=== PATIENT | female | born 1985 | race Hispanic/Latino ===

== ENCOUNTER 2019-10-03 11:40 | Emergency (ER) | payer SELFPAY ==
[~2019-10-03] VITALS: Ht 167.6 cm; Wt 81.6 kg
[2019-10-03] MEDS ORDERED: PANTOPRAZOLE 40 MG 10ML VIAL IV STA (13:14)
[2019-10-03] MEDS ORDERED: SODIUM CHLORIDE 0.9% 1000ML 1,000 ML IV STA (13:14)
[2019-10-03] MEDS ORDERED: ONDANSETRON HCL INJ 2MG/ML 2ML 2 MG/ML VIAL IV STA (13:14)
[2019-10-03] MEDS ORDERED: DONNATAL/LIDOCAINE/MAALOX 30 ML SUSP PO STA (13:14)
--- NOTE | 2019-10-03 13:14 | Emergency Department Note ---
History of Present Illnes History of Present Illness Chief Complaint: vomiting up a little bit blood. History of Present Illness This is a 34 year old female. was doing well prior to this. then buq pain, n/v Historian: Patient Arrival Mode: Car History limited by: condition of the patient (normal) Onset (how long ago): hour(s) (6) Location: buq Quality: sharp Radiation: Reports non-radiation Severity: moderate Timing of current episode: rare Progression: resolved Chronicity: new Context: Denies recent illness Relieving factors: none Exacerbating factors: eating Associated symptoms: Reports nausea/vomiting Treatments prior to arrival: none Past Medical/Family History Physician Review I have reviewed the patient's past medical and family history. Any updates have been documented here. Past Medical History Recent Fever: No Clinical Suspicion of Infectio: No New/Unexplained Change in Ment: No Past Medical History: None Past Surgical History: None Social History Smoking Cessation: Never Smoker Counseling Performed: No Alcohol Use: Social Any Illegal Drug Use: No TB Exposure/Symptoms: No Physically hurt or threatened: No Family History Family history of heart diseas: No Other Any Pre-Existing Lines (PICC,: No Is patient up to date on immun: No Review of Systems Review of Systems Constitutional: Reports no symptoms EENTM: Reports no symptoms Cardiovascular: Reports no symptoms Respiratory: Reports no symptoms Gastrointestinal: Reports as per HPI, Reports abdominal pain, Reports vomiting Genitourinary: Reports no symptoms Musculoskeletal: Reports no symptoms Integumentary: Reports no symptoms Neurological: Reports no symptoms Psychological: Reports no symptoms Endocrine: Reports no symptoms Hematological/Lymphatic: Reports no symptoms Review of other systems: All other systems negative Physical Exam Related Data Allergies: Coded Allergies: No Known Allergies (Unverified , 10/03/19) Vital signs reviewed: Yes Physical Exam CONSTITUTIONAL Constitutional: Present well-developed, Present well-nourished HENT HENT: Present normocephalic, Present atraumatic, Present oropharynx clear/moist, Present nose normal HENT L/R: Present left ext ear normal, Present right ext ear normal EYES Eyes: Reports PERRL, Reports conjunctivae normal NECK Neck: Present ROM normal PULMONARY Pulmonary: Present effort normal, Present breath sounds normal CARDIOVASCULAR Cardiovascular: Present regular rhythm, Present heart sounds normal, Present capillary refill normal, Present normal rate GASTROINTESTINAL Abdominal: Present soft, Present bowel sounds normal, Present tender (buq), Present guarding; Absent mass, Absent rebound GENITOURINARY Genitourinary: Present exam deferred SKIN Skin: Present warm, Present dry MUSCULOSKELETAL Musculoskeletal: Present ROM normal NEUROLOGICAL Neurological: Present alert, Present oriented x 3, Present no gross motor or sensory deficits PSYCHOLOGICAL Psychological: Present mood/affect normal, Present judgement normal Results Laboratory Lab results reviewed: Yes (NL CBC, NL CMP, UA +LEUK ) Imaging Imaging results reviewed: Yes Impressions [place] [address] Patient Name: IAN HERNANDEZ MR #: [id number] : 1985 Age/Sex: 34/F Req #: [id number] Adm Physician: Ordered by: KARSTEN GOSS Report #: [id number] Location: [facility] Room/Bed: Procedure: [id number] HOPD/CT ABD/PEL WITH CONTRAST-HOPD Exam Date: 10/03/19 Exam Time: 1352 REPORT STATUS: Signed EXAM: CT Abdomen and Pelvis WITH intravenous contrast INDICATION: Abdominal pain COMPARISON: None. TECHNIQUE: Abdomen and pelvis were scanned utilizing a multidetector helical scanner from the lung base to the pubic symphysis after administration of IV contrast. Coronal and sagittal reformations were obtained. Routine protocol was performed. Scan was performed during portal venous phase. IV CONTRAST: 100mL of Isovue 370 ORAL CONTRAST: Water RADIATION DOSE: Total DLP: 808 mGy*cm Dose modulation, iterative reconstruction, and/or weight based adjustment of the mA/kV was utilized to reduce the radiation dose to as low as reasonably achievable. FINDINGS: LOWER THORAX: 4 mm right lower lobe pulmonary nodule. HEPATOBILIARY: Mild hepatic steatosis. No focal liver lesion. Focal fat adjacent to the falciform ligament. No biliary ductal dilation. Unremarkable gallbladder. SPLEEN: No splenomegaly. PANCREAS: No focal masses or ductal dilatation. ADRENALS: No adrenal nodules. KIDNEYS/URETERS: No hydronephrosis, stones, or solid mass lesions. PELVIC ORGANS/BLADDER: Unremarkable. PERITONEUM / RETROPERITONEUM: No free air or fluid. LYMPH NODES: No lymphadenopathy. VESSELS: Unremarkable. GI TRACT: No abnormal bowel thickening. No bowel obstruction. Normal appendix. BONES AND SOFT TISSUES: Unremarkable. IMPRESSION: No acute findings in the abdomen or pelvis. Mild hepatic steatosis. 4 mm right lower lobe pulmonary nodule. If the patient is high risk, chest CT at 12 months is optional. If the patient is low risk, no follow-up imaging is necessary. Signed by: Jessica Nguyễn MD on 10/03/2019 2:02 PM Dictated By: JESSICA NGUYỄN MD 01 Transcribed By: PANCHO on 10/03/191401 Assessment & Plan Medical Decision Making MDM see rxs below. f/u gi Reassessment Reassessment symptoms resolved s/p meds Assessment & Plan Final Impression: (1) Acute gastritis (2) UTI (urinary tract infection) (3) Vomiting (4) Pulmonary nodule Depart Disposition: HOME, SELF-snf Meds Active Scripts Ciprofloxacin Hcl (CIPRO) 500 Mg Tablet, 500 MG PO Q12H, #20 TAB Prov:KARSTEN GOSS 10/03/19 Omeprazole Magnesium (PRILOSEC OTC) 20 Mg Tablet.dr, 20 MG PO Q12H, #30 TAB Prov:KARSTEN GOSS 10/03/19 Ondansetron (ONDANSETRON ODT) 8 Mg Tab.rapdis, 4 MG PO Q4HR PRN for NAUSEA AND VOMITING, #30 TAB 1 Refill Prov:KARSTEN GOSS 10/03/19 KARSTEN GOSS Oct 03, 2019 13:14
[2019-10-03] MEDS ORDERED: IOPAMIDOL 370 MG/ML 200 ML INFUS..BTL INJ ONE (13:31)
[2019-10-03] MEDS ORDERED: SODIUM CHLORIDE 0.9% 50ML 50 ML ONE (13:31)
[2019-10-03] MEDS ORDERED: LIDOCAINE VISC 2% SOLN 15 ML UDC ONE (13:54)
[2019-10-03] MEDS ORDERED: MAGNESIUM/ALUMINUM/SIMETHICONE 30 ML UDC ONE (13:54)
[2019-10-03] MEDS ORDERED: BELLADONNA ALK/PHENOBARBITAL 5 ML UDC ONE (13:54)
[2019-10-03] MEDS ORDERED: SODIUM CHLORIDE 0.9% 1000ML 1,000 ML ONE (13:55)
--- NOTE | 2019-10-03 14:06 | Diagnostic Imaging Report ---
EXAM: CT Abdomen and Pelvis WITH intravenous contrast INDICATION: Abdominal pain COMPARISON: None. TECHNIQUE: Abdomen and pelvis were scanned utilizing a multidetector helical scanner from the lung base to the pubic symphysis after administration of IV contrast. Coronal and sagittal reformations were obtained. Routine protocol was performed. Scan was performed during portal venous phase. IV CONTRAST: 100mL of Isovue 370 ORAL CONTRAST: Water RADIATION DOSE: Total DLP: 808 mGy*cm Dose modulation, iterative reconstruction, and/or weight based adjustment of the mA/kV was utilized to reduce the radiation dose to as low as reasonably achievable. FINDINGS: LOWER THORAX: 4 mm right lower lobe pulmonary nodule. HEPATOBILIARY: Mild hepatic steatosis. No focal liver lesion. Focal fat adjacent to the falciform ligament. No biliary ductal dilation. Unremarkable gallbladder. SPLEEN: No splenomegaly. PANCREAS: No focal masses or ductal dilatation. ADRENALS: No adrenal nodules. KIDNEYS/URETERS: No hydronephrosis, stones, or solid mass lesions. PELVIC ORGANS/BLADDER: Unremarkable. PERITONEUM / RETROPERITONEUM: No free air or fluid. LYMPH NODES: No lymphadenopathy. VESSELS: Unremarkable. GI TRACT: No abnormal bowel thickening. No bowel obstruction. Normal appendix. BONES AND SOFT TISSUES: Unremarkable. IMPRESSION: No acute findings in the abdomen or pelvis. Mild hepatic steatosis. 4 mm right lower lobe pulmonary nodule. If the patient is high risk, chest CT at 12 months is optional. If the patient is low risk, no follow-up imaging is necessary. Signed by: July Nguyễn MD on 10/03/2019 2:02 PM
[2019-10-03] MEDS ORDERED: CIPRO500 MG PO (15:11)
[2019-10-03] MEDS ORDERED: ONDANSETRON ODT8 MG PO (15:11)
[2019-10-03] MEDS ORDERED: PRILOSEC OTC20 MG PO (15:11)
[2019-10-03 15:57] VITALS: BP 125/88
== END 2019-10-03 16:04 | disposition home or self-care (01) ==
LOC: FSED 11:40
DX: R10.12 Left upper quadrant pain (principal); R10.11 Right upper quadrant pain; R11.2 Nausea with vomiting, unspecified; N39.0 Urinary tract infection, site not specified; K29.00 Acute gastritis without bleeding; R91.8 Other nonspecific abnormal finding of lung field
CPT/HCPCS: 74177; 80053; 81003; 81025; 85025; 96374; 96376; 99284; C9113; J2405; J7030; Q9967

== ENCOUNTER 2019-11-11 10:11 | Emergency (ER) | payer SELFPAY ==
[~2019-11-11] VITALS: Ht 162.6 cm; Wt 83.6 kg
[~2019-11-11 10:11] MED LIST: CIPRO500 MG PO; ONDANSETRON ODT8 MG PO; PRILOSEC OTC20 MG PO
[2019-11-11] MEDS ORDERED: ALBUTEROL0.63 MG/3 (10:28)
--- NOTE | 2019-11-11 10:47 | Diagnostic Imaging Report ---
EXAMINATION: CXR 2 VIEW - HOPD INDICATION: Cough COMPARISON: None FINDINGS: LINES/TUBES:None LUNGS:The lungs are well-inflated. No focal consolidation or pulmonary edema. PLEURA:No pleural effusion or pneumothorax. MEDIASTINUM:The cardiomediastinal silhouette appears normal in size and shape. BONES/SOFT TISSUES:No acute osseous injury. ABDOMEN:No free air under the diaphragm. IMPRESSION: No focal pneumonia or pulmonary edema. Signed by: July Nguyễn MD on 11/11/2019 10:44 AM
--- NOTE | 2019-11-11 11:09 | Emergency Department Note ---
History of Present Illnes History of Present Illness Chief Complaint: Abdominal Complaints History of Present Illness This is a 34 year old female Chief Complaint Comment Reports that at 0300 she started coughing and vomited blood, now her chest hurts. She did a neb treatment at home and denies any nausea or abd pain. . 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 Onset (how long ago): day(s) (2) Location: cough Quality: dull Radiation: Denies non-radiation, Denies back, Denies neck, Denies extremity, Denies abdomen, Denies periumbilical, Denies flank, Denies proximal, Denies distal, Denies other Severity: mild Onset quality: gradual Duration (how long): day(s) (2) Timing of current episode: intermittent Progression: waxing and waning Chronicity: new Context: Denies recent illness, Denies recent surgery, Denies recent immobilization, Denies recent travel, Denies trauma/injury, Denies new medications, Denies hx of DVT/PE, Denies non-compliance w/ medications, Denies other Relieving factors: none Exacerbating factors: none Associated symptoms: Reports cough; Denies denies other symptoms, Denies confusion, Denies chest pain, Denies diaphoresis, Denies fever/chills, Denies headaches, Denies loss of appetite, Denies malaise, Denies nausea/vomiting, Denies rash, Denies seizure, Denies shortness of breath, Denies syncope, Denies weakness, Denies other Treatments prior to arrival: none Past Medical/Family History Physician Review I have reviewed the patient's past medical and family history. Any updates have been documented here. Past Medical History Recent Fever: No Clinical Suspicion of Infectio: No New/Unexplained Change in Ment: No Past Medical History: Asthma Past Surgical History: None Social History Smoking Cessation: Never Smoker Counseling Performed: No Alcohol Use: None Any Illegal Drug Use: No Physically hurt or threatened: No Other Last Tetanus: UNK Any Pre-Existing Lines (PICC,: No Review of Systems Review of Systems Constitutional: Reports no symptoms EENTM: Reports no symptoms Cardiovascular: Reports no symptoms Respiratory: Reports as per HPI Gastrointestinal: Reports no symptoms Genitourinary: Reports no symptoms Musculoskeletal: Reports no symptoms Integumentary: Reports no symptoms Neurological: Reports no symptoms Psychological: Reports no symptoms Endocrine: Reports no symptoms Hematological/Lymphatic: Reports no symptoms Physical Exam Related Data Allergies: Coded Allergies: Penicillins (Verified Allergy, Intermediate, rash/hives, 11/11/19) Triage Vital Signs Vital Signs Date Time Temp Pulse Resp B/P (MAP) Pulse Ox O2 Delivery O2 Flow Rate FiO2 11/11/19 10:18 97.8 79 18 123/69 100 Room Air Vital signs reviewed: Yes Physical Exam CONSTITUTIONAL Constitutional: Present well-developed, Present well-nourished HENT HENT: Present normocephalic, Present atraumatic, Present oropharynx clear/moist, Present nose normal HENT L/R: Present left ext ear normal, Present right ext ear normal EYES Eyes: Reports PERRL, Reports conjunctivae normal NECK Neck: Present ROM normal PULMONARY Pulmonary: Present effort normal, Present breath sounds normal CARDIOVASCULAR Cardiovascular: Present regular rhythm, Present heart sounds normal, Present c apillary refill normal, Present normal rate GASTROINTESTINAL Abdominal: Present soft, Present nontender, Present bowel sounds normal GENITOURINARY Genitourinary: Present exam deferred SKIN Skin: Present warm, Present dry MUSCULOSKELETAL Musculoskeletal: Present ROM normal NEUROLOGICAL Neurological: Present alert, Present oriented x 3, Present no gross motor or sensory deficits PSYCHOLOGICAL Psychological: Present mood/affect normal, Present judgement normal Results Imaging Imaging results reviewed: Yes Assessment & Plan Medical Decision Making MDM bronchitis pneumonia Reassessment Reassessment better Assessment & Plan Final Impression: (1) Acute bronchitis (2) Hemoptysis Depart Disposition: HOME, SELF-CARE Last Vital Signs Date Time Temp Pulse Resp B/P (MAP) Pulse Ox O2 Delivery O2 Flow Rate FiO2 11/11/19 10:18 97.8 79 18 123/69 100 Room Air Home Meds Reported Medications Albuterol Sulfate (ALBUTEROL SULFATE) 0.63 Mg/3 Ml Vial.neb 11/11/19 Discontinued Scripts Ciprofloxacin Hcl (CIPRO) 500 Mg Tablet, 500 MG PO Q12H, #20 TAB Prov:KARSTEN GOSS 10/03/19 Omeprazole Magnesium (PRILOSEC OTC) 20 Mg Tablet.dr, 20 MG PO Q12H, #30 TAB Prov:KARSTEN GOSS 10/03/19 Ondansetron (ONDANSETRON ODT) 8 Mg Tab.rapdis, 4 MG PO Q4HR PRN for NAUSEA AND VOMITING, #30 TAB 1 Refill Prov:KARSTEN GOSS 10/03/19 CHRISTIAN BULL MD Nov 11, 2019 11:09
[2019-11-11] MEDS ORDERED: TESSALON PERLE100 MG PO (11:13)
[2019-11-11] MEDS ORDERED: BACTRIM DS TAB1 EACH PO (11:13)
[2019-11-11] MEDS ORDERED: ALBUTEROL0.63 MG/3 INH (11:13)
--- OUTSIDE RECORDS SUMMARY | 2019-11-14 19:10 | XMS REPORT | Clinical Summary ---
Author Author [facility] Organization [facility] Address Unknown Phone Unavailable Care Team Providers Care Ic Design Manager Name Role Phone PCP Unavailable Allergies Comments Active Allergy Reactions Severity Noted Date erythema Penicillin Other 12/17/2016 Medications End Date Status Medication Sig Dispensed Refills Start Date Active acetaminophen-codeine Take 1 tablet 20 tablet 0 (TYLENOL/CODEINE #3) by mouth 7 300-30 mg per tablet every 4 hours as needed for Pain. Active ibuprofen (MOTRIN) 800 mg Take 1 tablet 30 tablet 0 tablet by mouth 7 every 8 hours as needed for Pain. Active Problems Not on file Social History Date Tobacco Use Types Packs/Day Years Used Never Smoker Smokeless Tobacco: Never Used Drinks/Week oz/Week Comments Alcohol Use No Sex Assigned at Date Recorded Not on file Industry Job Start Date Occupation Not on file Not on file Not on file Travel End Travel History Travel Start No recent travel history available. 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
--- OUTSIDE RECORDS SUMMARY | 2019-11-14 19:11 | XMS REPORT | Continuity of Care Document ---
Author Author [facility] t Organization [facility] Address [address] [place] [address] Phone Unavailable Care Team Providers Care Logistics Clerk Name Role Phone NO, PCP PCP Unavailable CHRISTIAN BULL Attphys Unavailable Bernardo GOSS Attphys Unavailable Jaskaran Higginbotham MD Attphys Problems Condition Name Condition Details Condition Category Status Onset Date Resolution Date Last Treatment Date Treating Clinician Comments Source Acute gastritis Problem Active [facility] Urinary tract infection Problem Active [facility] Vomiting Problem Active [facility] Lung nodule Problem Active [facility] Acute bronchitis Problem Active [facility] Hemoptysis Problem Active [facility] Allergies, Adverse Reactions, Alerts Allergy Name Allergy Type Status Severity Reaction(s) Onset Date Inacti ve Date Treating Clinician Comments Source Penicillin Allergy to substance Active Moderate rash/hives 2019-10 00:00:00 [facility] Penicillin Propensity to adverse reactions to drug Active Other 2016-12-17 00:00:00 erythema [facility] Social History Social Habit Start Date Stop Date Quantity Comments Source Sex Assigned At [facility] Alcohol intake 2016-12-17 00:00:00 2016-12-17 00:00:00 Current non-drinker of alcohol (finding) [facility] Smoking Status Start Date Stop Date Source Never smoker [facility] Medications Ordered Medication Name Filled Medication Name Start Date Stop Da te Current Medication? Ordering Clinician Indication Dosage Frequency Signature (SIG) Comments Components Source Albuterol Sulfate Albuterol Sulfate 2019-11-11 11:13:00 Yes 2 Three Times A Day for Dyspnea [facility] Benzonatate (Tessalon Perle) 100 Mg CAPSULE Benzonatat e (Tessalon Perle) 100 Mg CAPSULE 2019-11-11 11:13:00 Yes 1 Three Times A Da y for Cough [facility] Sulfamethoxazole/Trimethoprim (Bactrim Ds Tablet) 1 Ea ch TABLET Sulfamethoxazole/Trimethoprim (Bactrim Ds Tablet) 1 Each TABLET 2019-11-11 11:13:00 Yes 1 Twice A Day [facility] Ciprofloxacin Hcl (Cipro) 500 Mg TABLET Ciprofloxacin Hcl (C ipro) 500 Mg TABLET 2019-10-03 15:11:00 2019-11-11 00:00:00 No 500 Every 12 Hours [facility] Omeprazole Magnesium (Prilosec Otc) 20 Mg TABLET.DR [place] eprazole Magnesium (Prilosec Otc) 20 Mg TABLET. 2019-10-03 15:11:2019-11-11 00:00:00 No 20 Every 12 Hours [facility] Ondansetron (Ondansetron Odt) 8 Mg TAB.JENIFFER Ondanset jamal (Ondansetron Odt) 8 Mg TAB.LISSETDIS 2019-10-03 15:11:00 2019-11-11 00:00:00 No 4 Every 4 Hours as needed for Nausea And Vomiting [facility] acetaminophen-codeine (TYLENOL/CODEINE #3) 300-30 mg per tab let 2016-12-17 00:00:00 Yes 1{tbl} Take 1 tab let by mouth every 4 hours as needed for Pain. [facility] ibuprofen (MOTRIN) 800 mg tablet 2016-12-17 00:00:00 Yes 800mg Take 1 tablet by mouth every 8 hours as needed for Pain. [facility] Albuterol Sulfate Albuterol Sulfate Yes [facility] Vital Signs Vital Name Observation Time Observation Value Comments Source Weight 2019-11-11 10:18:00 184.31 [lb_av] [facility] BMI (Body Mass Index) 2019-11-11 10:18:00 31.6 kg/m2 [facility] Body Temperature 2019-10-03 15:57:00 97.8 [degF] [facility] Weight 2019-10-03 12:20:00 180 [lb_av] [facility] BMI (Body Mass Index) 2019-10-03 12:20:00 29.1 kg/m2 [facility] Procedures This patient has no known procedures. Plan of Care Planned Activity Planned Date Details Comments Source Future Scheduled Test 2020-01-15 00:00:00 IMM Influenza Seas onal Jan to June (>/= 19 yrs) [code = IMM Influenza Seasonal Jan to June (>/= 19 yrs)] [facility] Scheduled Test 2005 00:00:00 Screening for frank gnant neoplasm of cervix (procedure) [code = 853852343] [facility] Instructions Bronchitis (Acute) - Adult [facility] Encounters Start Date/Time End Date/Time Encounter Type Admission Type Attendi [facility] Care Department Encounter ID Source 2019-11-11 10:32:00 2019-11-11 11:23:00 Departed Emergency Room 1 CHRISTIAN BULL [facility] [id number] [facility] 2019-10-03 11:40:00 2019-10-03 16:04:00 Departed Emergency Room 1 KARSTEN GOSS [facility] [id number] [facility] 2019-05-19 11:45:47 2019-05-19 15:33:00 Emergency [facility] [id number] 2016-12-17 18:12:35 2016-12-17 18:12:35 Emergency [facility] [id number] [facility] 2016-12-17 14:27:54 2016-12-17 14:27:54 Emergency [facility] [id number] [facility] 2016-12-17 14:10:52 2016-12-17 14:10:52 Emergency [facility] [id number] [facility] Results Test Description Test Time Test Comments Results Result Comments Source CXR 2 VIEW - HOPD 2019-11-11 10:43:00 [place] [address] Patient Name: IAN HERNANDEZ MR #: [id number] : 1985 Age/Sex: 34/F Req #: [id number] Adm Physician: Ordered by: CHRISTIAN BULL MD Report #: [id number] Location: [facility] Room/Bed: Procedure: [id number] HOPD/CXR 2 VIEW - HOPD Exam Date: 11/11/19 Exam Time: 1038 REPORT STATUS: Signed EXAMINATION: CXR 2 VIEW - HOPD INDICATION: Cough COMPARISON: None FINDINGS: LINES/TUBES:None LUNGS:The lungs are well-inflated. No focal consolidation or pulmonary edema. PLEURA:No pleural effusion or pneumothorax. MEDIASTINUM:The cardiomediastinal silhouette appears normal in size and shape. BONES/SOFT TISSUES:No acute osseous injury. ABDOMEN:No free air under the diaphragm. IMPRESSION: No focal pneumonia or pulmonary edema. Signed by: Jessica Amato MD on 11/11/2019 10:44 AM Dictated By: JESSICA AMATO MD 1044 Transcribed By: PANCHO on 11/11/19 1044 COPY TO: CHRISTIAN BULL MD CT ABD/PEL WITH CONTRAST-HOPD 2019-10-03 13:59:00 [place] [address] Patient Name: IAN HERNANDEZ MR #: [id number] : 1985 Age/Sex: 34/F Req #: [id number] Adm Physician: Ordered by: KARSTEN GOSS Report #: [id number] Location: [facility] Room/Bed: Procedure: [id number] HOPD/CT ABD/PEL WITH CONTRAST-HOPD Exam Date: 10/03/19 Exam Time: 1352 REPORT STATUS: Signed EXAM: CT Abdomen and Pelvis WITH intravenous contrast INDICATION: Abdominal pain COMPARISON: None. TECHNIQUE: Abdomen and pelvis were scanned utilizing a multidetector helical scanner from the lung base to the pubic symphysis after administration of IV contrast. Coronal and sagittal reformations were obtained. Routine protocol was performed. Scan was performed during portal venous phase. IV CONTRAST: 100mL of Isovue 370 ORAL CONTRAST: Water RADIATION DOSE: Total DLP: 808 mGy*cm Dose modulation, iterative reconstruction, and/or weight based adjustment of the mA/kV was utilized to reduce the radiation dose to as low as reasonably achievable. FINDINGS: LOWER THORAX: 4 mm right lower lobe pulmonary nodule. HEPATOBILIARY: Mild hepatic steatosis. No focal liver lesion. Focal fat adjacent to the falciform ligament. No biliary ductal dilation. Unremarkable gallbladder. SPLEEN: No splenomegaly. PANCREAS: No focal masses or ductal dilatation. ADRENALS: No adrenal nodules. KIDNEYS/URETERS: No hydronephrosis, stones, or solid mass lesions. PELVIC ORGANS/BLADDER: Unremarkable. PERITONEUM / RETROPERITONEUM: No free air or fluid. LYMPH NODES: No lymphadenopathy. VESSELS: Unremarkable. GI TRACT: No abnormal bowel thickening. No bowel obstruction. Normal appendix. BONES AND SOFT TISSUES: Unremarkable. IMPRESSION: No acute findings in the abdomen or pelvis. Mild hepatic steatosis. 4 mm right lower lobe pulmonary nodule. If the patient is high risk, chest CT at 12 months is optional. If the patient is low risk, no follow-up imaging is necessary. Signed by: Jessica Amato MD on 10/03/2019 2:02 PM Dictated By: JESSICA AMATO MD 140 Transcribed By: PANCHO on 10/03/191401 COPY TO: KARSTEN GOSS
== END 2019-11-11 11:23 | disposition home or self-care (01) ==
LOC: FSED 10:32
DX: R04.2 Hemoptysis (principal); J20.9 Acute bronchitis, unspecified; J45.909 Unspecified asthma, uncomplicated
CPT/HCPCS: 71046; 99283

== ENCOUNTER 2020-04-07 10:42 | Emergency (ER) | payer MEDICARE ==
[~2020-04-07] VITALS: Ht 162.6 cm; Wt 86.2 kg
[~2020-04-07 10:42] MED LIST changes: +ALBUTEROL0.63 MG/3; +ALBUTEROL0.63 MG/3 INH; +BACTRIM DS TAB1 EACH PO; +TESSALON PERLE100 MG PO
[2020-04-07] MEDS ORDERED: METHYLPREDNISOLONE SOD SUCC 125 MG/2ML VIAL IV ONE (11:15)
[2020-04-07 11:34] LABS: BASOPHILS % 0.2 % (0.0-1.0); HEMATOCRIT 38.5 % (34.2-44.1); HEMOGLOBIN 12.4 g/dL (12.0-16.0); LYMPHOCYTES # (AUTO) 1.2 (1.0-3.2); LYMPHOCYTES % 11.3 % (18.0-39.1); MEAN CORPUSCULAR HEMOGLOBIN 28.2 pg (28-32); MEAN CORPUSCULAR HGB CONC 32.2 g/dL (31-35); MEAN CORPUSCULAR VOLUME 87.7 fL (81-99); MONOCYTES # (AUTO) 0.8 (0.2-0.8); MONOCYTES % 7.5 % (4.4-11.3); NEUTROPHILS # (AUTO) 8.5 (2.1-6.9); NEUTROPHILS % 80.2 % (38.7-80.0); PLATELET COUNT 283 x10e3/uL (140-360); RED BLOOD COUNT 4.39 x10e6/uL (3.6-5.1); RED CELL DISTRIBUTION WIDTH 14.7 % (11.7-14.4)
[2020-04-07 11:55] LABS: ALANINE AMINOTRANSFERASE 29 IU/L (0-55); ALBUMIN 3.9 g/dL (3.5-5.0); ALBUMIN/GLOBULIN RATIO 1.4 (0.8-2.0); ALKALINE PHOSPHATASE 79 IU/L (40-150); ANION GAP 14.9 mmol/L (8-16); BLOOD UREA NITROGEN 8 mg/dL (7-26); BUN/CREATININE RATIO 11 (6-25); CALCIUM 8.8 mg/dL (8.4-10.2); CARBON DIOXIDE 21 mmol/L (22-29); CHLORIDE 110 mmol/L (98-107); EST GLOMERULAR FILTRATION RATE > 60 ML/MIN (60-); GLUCOSE 155 mg/dL (74-118); POTASSIUM 3.9 mmol/L (3.5-5.1); SODIUM 142 mmol/L (136-145)
[2020-04-07] MEDS ORDERED: ALBUTEROL/IPRATROPIUM 3 ML NEB NEB STA (12:31)
== END 2020-04-07 13:21 | disposition home or self-care (01) ==
LOC: ER 11:13
DX: J45.909 Unspecified asthma, uncomplicated (principal); R06.02 Shortness of breath
CPT/HCPCS: 36415; 71045; 80053; 85025; 94640; 99284; J2930; U0002

== ENCOUNTER 2020-04-16 23:36 | Emergency (ER) | payer MEDICARE ==
[~2020-04-16] VITALS: Ht 162.6 cm; Wt 85.7 kg
[2020-04-17] MEDS ORDERED: ACETAMINOPHEN 325 MG TAB PO ONE
[2020-04-17 01:01] VITALS: BP 115/86
== END 2020-04-17 01:10 | disposition home or self-care (01) ==
LOC: ER 04-17
DX: U07.1 COVID-19 (principal); R50.9 Fever, unspecified; R05 Cough; J45.909 Unspecified asthma, uncomplicated
CPT/HCPCS: 71045; 99283; U0002

== ENCOUNTER 2020-04-19 14:15 | Emergency (ER) | payer SELFPAY ==
[~2020-04-19] VITALS: Ht 162.6 cm; Wt 85.7 kg
[2020-04-19] MEDS ORDERED: TYLENOL # 31 EA PO ×2 (14:52→14:53)
== END 2020-04-19 15:57 | disposition home or self-care (01) ==
LOC: ER 14:30
DX: U07.1 COVID-19 (principal); R50.9 Fever, unspecified; R05 Cough; J45.909 Unspecified asthma, uncomplicated
CPT/HCPCS: 99283

== ENCOUNTER 2020-10-26 11:54 | Emergency (ER) | payer SELFPAY ==
[~2020-10-26] VITALS: Ht 167.6 cm; Wt 63.5 kg
[~2020-10-26 11:54] MED LIST changes: +TYLENOL # 31 EA PO
[2020-10-26] MEDS ORDERED: ONDANSETRON HCL INJ 2MG/ML 2ML 2 MG/ML VIAL IV STA (12:17)
[2020-10-26 12:58] LABS: BASOPHILS % 0.8 % (0.0-1.0); EOSINOPHILS # (AUTO) 0.3 (0.0-0.4); EOSINOPHILS % 5.3 % (0.0-6.0); HEMOGLOBIN 12.7 g/dL (12.0-16.0); LYMPHOCYTES # (AUTO) 1.5 (1.0-3.2); MEAN CORPUSCULAR HEMOGLOBIN 28.1 pg (28-32); MEAN CORPUSCULAR HGB CONC 31.8 g/dL (31-35); MEAN CORPUSCULAR VOLUME 88.5 fL (81-99); MONOCYTES # (AUTO) 0.4 (0.2-0.8); MONOCYTES % 9.1 % (4.4-11.3); NEUTROPHILS # (AUTO) 2.5 (2.1-6.9); NEUTROPHILS % 53.6 % (38.7-80.0); PLATELET COUNT 272 x10e3/uL (140-360); RED BLOOD COUNT 4.52 x10e6/uL (3.6-5.1)
[2020-10-26 13:02] LABS: CLARITY,URINE CLEAR (CLEAR); COLOR,URINE YELLOW (YELLOW); LEUKOCYTE ESTERASE ,URINE NEGATIVE (NEGATIVE)
[2020-10-26 13:03] LABS: KETONES,URINE 2+ (NEGATIVE); NITRITE,URINE NEGATIVE (NEGATIVE); PROTEIN,URINE DIPSTICK NEGATIVE (NEGATIVE); URINE UROBILINOGEN 0.2 mg/dL (0.2 - 1)
[2020-10-26 13:15] LABS: BACTERIA,URINE MODERATE /HPF; EPITHELIAL CELLS,URINE MANY /LPF; RBC,URINE 0-5 /HPF (0-5)
[2020-10-26 13:22] LABS: ALBUMIN 4.1 g/dL (3.5-5.0); ALBUMIN/GLOBULIN RATIO 1.4 (0.8-2.0); ANION GAP 11.9 mmol/L (8-16); CALCIUM 8.7 mg/dL (8.4-10.2); CREATININE, SERUM 0.62 mg/dL (0.57-1.11); POTASSIUM 3.9 mmol/L (3.5-5.1)
[2020-10-26] MEDS ORDERED: CIPRO500 MG PO (13:55)
[2020-10-26] MEDS ORDERED: PROTONIX40 MG PO (13:55)
[2020-10-26 14:07] VITALS: BP 132/61
== END 2020-10-26 14:10 | disposition home or self-care (01) ==
LOC: ER 12:21
DX: R10.13 Epigastric pain (principal); K92.0 Hematemesis; N39.0 Urinary tract infection, site not specified; J45.909 Unspecified asthma, uncomplicated
CPT/HCPCS: 36415; 80053; 81001; 81025; 85025; 99283; C9113; J2405